=== PATIENT | female | born 1970 | race Caucasian/White ===

== ENCOUNTER 2016-08-05 16:22 | Emergency (ER) | payer OTHER ==
--- NOTE | ~2016-08-05 | EKG ---
PATIENT: ROSALINDA CONNORS UNIT #: [id number] Ventricular Rate: 106 BPM Atrial Rate: 106 BPM P-R Interval: 126 ms QRS Duration: 96 ms Q-T Interval: 356 ms QTC Calculation(Bezet): 472 ms P Salem: 64 degrees Calculated R Salem: 19 degrees Calculated T Salem: 32 degrees Diagnosis Line: Sinus tachycardia Diagnosis Line: Nonspecific T wave abnormality Diagnosis Line: Abnormal ECG Diagnosis Line: When compared with ECG of 02-MAY-2014 08:58, Diagnosis Line: No significant change was found Diagnosis Line: Confirmed by MANDO HUYNH MD ([id number]) on Diagnosis Line: 08/06/2016 7:08:56 PM INTERPRETING MD: AMINA SHELDON
--- NOTE | ~2016-08-05 | CR72 ---
[facility] A Service of [facility] & [facility] RADIOLOGY TEXT RESULTS PATIENT: ROSALINDA CONNORS LOCATION: [facility] : 72 UNIT #: [id number] AGE: [address]: Tyree Borrego MD SEX: F ORDER DR: [id number] [facility] [address] [place], [place] [address] [id number] E MR#: [id number] Acc #: [id number] NAME: ROSALINDA CONNORS : 1970 SEX: F STUDY DATE/TIME: 08/05/2016 17:03 UNIT: [facility] ROOM: STUDY DESCRIPTION: CR Chest Single View Portable Attending Physician: Tyree Borrego Ordering Physician: Ed Doctor [id number] [facility] Primary Care Physician: Linda Mclean M.D. MEDICAL IMAGING REPORT This report is preliminary unless electronic signature is present EXAM Portable chest radiograph INDICATION Chest pain which started 2 days ago. Patient also apparently has some shortness of breath. FINDINGS Comparison is made to a prior study from June 22, 2013 and May 27, 2015. The heart size is within normal limits. This patient is noted to have an area of nodularity within the left infrahilar region which is indeterminate. I do not clearly identify it on prior exams. No pneumothorax or pleural effusion is seen with postsurgical changes seen within the right neck. An area at the left infrahilar region could reflect either infiltrate or even underlying lesion and would be better characterized with dedicated CT of the chest. Dictated by... Tamara Banks M.D. THIS IS AN ELECTRONICALLY VERIFIED REPORT Tamara Banks M.D. at 08/06/2016 4:40 PM AFF/maribel TD: 08/06/2016 01:45 JOB #: [id number] MEDICAL IMAGING REPORT Page 1 of 1 COPY
[~2016-08-05 16:22] MED LIST: ABILIFY5 MG PO; ACETAMINOPHEN650 M3 PO; ACTOPLUS MET PO; ACULAR10 ML OS; ADVAIR 1001 DISK W/D PO; ALBUTEROL1.25 MG/3 IH; ALBUTEROL17 G1 NEB; ALBUTEROL17 GM INH; ALBUTEROL2.5 MG/0.5 IH; ALBUTEROL2.5 MG/0.5 INH; AMARYL PO; AMARYL2 MG PO; ANTIVERT PO; ASPIRIN81 M1 PO; ASPIRIN81 MG PO; ATACAND PO; BAYER CHEWABLE81 MG PO; BUPAP PO; BUPROPION XL150 MG PO; BYETTA5 MCG/0.02 SQ; CANDESARTAN CILE8 MG PO; CHANTIX1 DOSE-PAC PO; CLARITIN10 MG PO; CLINDAMYCI75 MG/5 ML PO; COMPAZINE10 M2 PO; CYMBALTA30 MG PO; DALIRESP500 MCG PO; DEPACON100 MG/ML IV; DESYREL50 MG PO; DIPHENHYDRAMINE50 M1 PO; DRONABINOL2.5 MG PO; DULERA 100 MCG/13 GM; ECOTRIN325 MG PO; EFFIENT10 MG PO; FISH OIL 1,0001 CAP PO; FLEXERIL10 MG PO; GLUMETZA1000 MG/BO PO; HUMALOG100 U/ML SUBQ; INDOCIN SR75 MG PO; INSULIN PUMP R1 EACH; JANUMET 50-1,1 UDTAB PO; KLONOPIN0.5 MG PO; LAMICTAL25 MG PO; LANTUS100 U/ML SUBQ; LEVAQUIN PO; LEXAPRO20 MG PO; LISINOPRIL PO; LISINOPRIL10 MG PO; LISINOPRIL20 MG PO; LOPID600 MG PO; LOPRESSOR PO; LORTAB 10-5001 EACH PO; LORTAB 5/500 TA1 TA2 PO; LORTAB 7.51 TAB 7.5/ PO; LYRICA PO; MAGNESIUM IV; MEDROL4 MG/DOSE- PO; METFORMIN PO; METOPROLOL SUC200 MG PO; NAPROSYN500 MG PO; NICOTINE TRANSD21 MG EXT; NORFLEX100 M1 PO; OMNARIS; OMNARIS12.5 GM NS; ORAPRED ODT10 MG PO; OXYCODONE HCL5 MG PO; PHARBEDRYL50 MG PO; PHENERGAN25 M1 PO; PHENERGAN25 MG PO; PRINIVIL20 M1 PO; ROBITUSSIN100 MG/51 PO; SIMVASTATIN40 MG PO; SOLU-MEDRO1000 MG/1 IV; SPIRIVA18 MCG INH; SYMBICORT INH; TESSALON200 MG PO; THORAZINE25 MG PO; TOPAMAX PO; TOPIRAGEN100 MG PO; TORADOL10 MG PO; TRICOR PO; TUSSIONEX PENN473 ML PO; VENTOLIN INH; VICODIN 5/1 TAB 5/50 PO; VOLTAREN75 MG PO; WELLBUTRIN PO; XOPENEX HFA15 GM INH; ZOMIG5 MG/SPRAY; [UNRECOGNIZED DRUG - OTHER] PO
[2016-08-05 17:28] LABS: BASOPHIL% 0.6 % (0-2.5); EOSINOPHIL# 0.1 X10e3 (0-0.7); EOSINOPHIL% 1.4 % (0.0-7.0); HEMATOCRIT 45.6 % (35.0-45.0); HEMOGLOBIN 14.9 gm/dL (12.0-16.0); LYMPHOCYTE# 1.7 X10e3 (1.0-3.5); LYMPHOCYTE% 25.4 % (17.0-45.0); MEAN CELL VOLUME 88.7 FL (83-96); MEAN CORPUSCULAR HEMOGLOBIN 28.9 PG (28-34); MEAN CORPUSCULAR HGB CONC 32.6 g/dL (30-36); MEAN PLATELET VOLUME 9.3 FL (6.5-11.5); MONOCYTE# 0.6 X10e3 (0-1.0); MONOCYTE% 8.5 % (3.0-12.0); NEUTROPHIL# 4.2 X10e3 (1.5-7.1); NEUTROPHIL% 64.1 % (40-75); PLATELET COUNT 184 X10e3 (140-420); RED BLOOD COUNT 5.14 X10e (3.90-5.30); RED CELL DISTRIBUTION WIDTH 13.8 % (11.0-15.5); WHITE BLOOD COUNT 6.5 X10e3 (4.0-10.5)
[2016-08-05 17:30] LABS: DIFF IND NO
[2016-08-05 17:34] LABS: POC - CKMB 1.2 ng/mL (0.0-7.9); POC - TROPONIN <0.05 ng/mL (<=0.05)
[2016-08-05 17:40] LABS: PARTIAL THROMBOPLASTIN TIME 26.3 SECONDS (23.5-31.3); PROTHROMBIN TIME (PATIENT) 10.4 SECONDS (9.6-11.5)
[2016-08-05 17:49] LABS: ALBUMIN SERUM 3.9 g/dL (3.5-5.0); BILIRUBIN, DIRECT 0.1 mg/dL (0.0-0.2); BILIRUBIN,INDIRECT 0.5 mg/dL (0.0-0.9); BILIRUBIN,TOTAL 0.6 mg/dL (0.2-2.0); BUN/CREATININE RATIO 12.5; CALCIUM SERUM 9.1 mg/dL (8.4-10.2); CREATININE SERUM 0.8 mg/dL (0.6-1.4); GLOM FILT RATE Estimated 89.7 mL/min (>60); POTASSIUM 3.3 mmol/L (3.5-5.1); PROTEIN TOTAL SERUM 7.6 g/dL (6.0-8.3)
[2016-08-05 19:26] LABS: POC - TROPONIN <0.05 ng/mL (<=0.05)
== END 2016-08-05 20:55 | disposition home or self-care (01) ==
LOC: CED 16:22
PROVIDERS: Emergency Medicine
DX: S29.011A Strain of muscle and tendon of front wall of thorax, initial encounter (principal); I25.2 Old myocardial infarction; E11.9 Type 2 diabetes mellitus without complications; I10 Essential (primary) hypertension; J44.9 Chronic obstructive pulmonary disease, unspecified; F41.9 Anxiety disorder, unspecified; Z87.891 Personal history of nicotine dependence; X58.XXXA Exposure to other specified factors, initial encounter; Z88.8 Allergy status to other drugs, medicaments and biological substances; Z79.82 Long term (current) use of aspirin; Z79.899 Other long term (current) drug therapy
CPT/HCPCS: 36415; 71010; 80048; 80076; 82553; 84484; 85025; 85610; 85730; 93005; 96374; 96375; 99284; J1885; J2270; J2405

== ENCOUNTER → 2016-09-14 | Outpatient (CLI) | payer OTHER ==
--- NOTE | ~2016-09-14 | CT57 ---
[facility] A Service of [facility] & [facility] RADIOLOGY TEXT RESULTS PATIENT: ROSALINDA CONNORS [facility] : 72 UNIT #: [id number] AGE: [address]: Radha Spears APRN SEX: F ORDER DR: [id number] [facility] [address] [place], [place] [address] [id number] O MR#: [id number] Acc #: [id number] NAME: ROSALINDA CONNORS : 1970 SEX: F STUDY DATE/TIME: 09/14/2016 11:10 [facility] ROOM: STUDY DESCRIPTION: CT Chest Wo Cont Attending Physician: Radha Spears A.P.R.N. Referring Physician: Radha Spears A.P.R.N. Ordering Physician: Radha Spears A.P.R.N. Primary Care Physician: Linda Mclean M.D. MEDICAL IMAGING REPORT This report is preliminary unless electronic signature is present EXAM CT chest INDICATION Abnormal chest radiograph. Pulmonary nodule. Abnormal chest radiograph. TECHNIQUE CT of the thorax without contrast. Coronal and sagittal reconstructions were obtained. This CT exam was performed with one or more of the following radiation dose reduction techniques: automatic exposure control, adjustment of mA and/or kV according to patient size, and iterative reconstruction. COMPARISON CT chest dated 09/30/2010. FINDINGS There is moderate interstitial edema within both lungs. There are small bilateral pleural effusions, right greater than left. There is some areas of presumed atelectasis in the right lower lobe and the left lower lobe. Mild ground-glass opacities are noted in both lungs which is likely some alveolar edema. There is a cluster small nodules in the left upper lobe measuring up to 0.4 cm. No pathologically enlarged mediastinal or hilar lymph nodes. There is an increased number of morphologically normal lymph nodes in the mediastinum. There is trace pericardial effusion measuring up to 0.7 cm. The heart is enlarged. The thoracic aorta is normal in caliber. PELVIS: Limited images of the upper abdomen were obtained. There is no acute findings. Gallbladder is surgically absent. 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 IMPRESSION 1. Development of moderate interstitial edema and small bilateral pleural effusions. This is indicative of congestive heart failure. 2. Cardiomegaly and trace pericardial effusion is also supportive for acute congestive heart failure. 3. There are a few small pulmonary nodules in the lungs measuring less than 4 mm. These are considered to be benign given their small size. If there is significant pulmonary risk-factors, consider a precautionary 12-month followup study to further evaluate. 4. There is no focal area of nodularity in the left lower lobe to correlate with the patient's abnormal chest radiograph from 08/05/2016. Dictated by... Dayron Redding M.D. THIS IS AN ELECTRONICALLY VERIFIED REPORT Dayron Redding M.D. at 09/15/2016 9:14 AM DANNI/maribel TD: 09/15/2016 03:16 JOB #: [id number] MEDICAL IMAGING REPORT Page 1 of 1 COPY
--- NOTE | ~2016-09-14 | NM69 ---
[facility] A Service of [facility] RADIOLOGY TEXT RESULTS PATIENT: ROSALINDA CONNORS LOCATION: [facility] : 72 UNIT #: [id number] AGE: [address]: Radha Spears APRN SEX: F ORDER DR: [id number] [id number] [place], [place] [address] [id number] O MR#: [id number] Acc #: [id number] NAME: ROSALINDA CONNORS : 1970 SEX: F STUDY DATE/TIME: 09/14/2016 11:56 UNIT: [facility] ROOM: STUDY DESCRIPTION: JB Pulm Vent and Perf Attending Physician: Radha Spears A.P.R.N. Referring Physician: Radha Spears A.P.R.N. Ordering Physician: Radha Spears A.P.R.N. Primary Care Physician: Linda Mclean M.D. MEDICAL IMAGING REPORT This report is preliminary unless electronic signature is present EXAM Ventilation perfusion lung scan 09/14/2016 HISTORY Three week history of chest pain and shortness of air worsened with exertion. PROCEDURE Study performed with 30.4 mCi technetium 99m DTPA aerosol by inhalation followed by 5.78 mCi technetium 99m MAA IV. COMPARISON Chest radiograph same date. FINDINGS Ventilation images are normal. Perfusion images are normal. IMPRESSION Normal ventilation perfusion lung scan. Dictated by... Saeid Hansen M.D. THIS IS AN ELECTRONICALLY VERIFIED REPORT Saeid Hansen M.D. at 09/16/2016 10:29 AM TEV/to TD: 09/14/2016 16:44 JOB #: [id number] [facility] A Service [facility] RADIOLOGY TEXT RESULTS PATIENT: ROSLAINDA CONNORS LOCATION: [facility] : 72 UNIT #: [id number] AGE: [address]: Radha Spears APRN SEX: F ORDER DR: MEDICAL IMAGING REPORT Page 1 of 1 COPY
--- NOTE | ~2016-09-14 | CR63 ---
[facility] A Service of [facility] & [facility] RADIOLOGY TEXT RESULTS PATIENT: ROSALINDA CONNORS [facility] : 72 UNIT #: [id number] AGE: [address]: Radha Spears APRN SEX: F ORDER DR: [id number] [facility] [address] [place], [place] [address] [id number] O MR#: [id number] Acc #: [id number] NAME: ROSALINDA CONNORS : 1970 SEX: F STUDY DATE/TIME: 09/14/2016 11:23 UNIT: [facility] ROOM: STUDY DESCRIPTION: CR Chest 2 View Attending Physician: Radha Spears A.P.R.N. Referring Physician: Radha Spears A.P.R.N. Ordering Physician: Radha Spears A.P.R.N. Primary Care Physician: Linda Mclean M.D. MEDICAL IMAGING REPORT This report is preliminary unless electronic signature is present EXAM Chest PA and lateral, 09/14/2016 HISTORY Dyspnea, shortness of breath, chest pain and cough for 1 week, asthma. Smoking history. FINDINGS There is mild cardiac enlargement. There are interstitial infiltrates bilaterally which could reflect mild pulmonary edema. No airspace consolidation is seen. There are no pleural effusions. IMPRESSION Cardiomegaly with interstitial infiltrates bilaterally could reflect mild pulmonary edema. Dictated by... Jorge Breaux M.D. THIS IS AN ELECTRONICALLY VERIFIED REPORT Jorge Breaux M.D. at 09/15/2016 2:11 PM JUANITO/maribel TD: 09/14/2016 23:46 JOB #: [id number] MEDICAL IMAGING REPORT Page 1 of 1 COPY
== END | disposition home or self-care (01) ==
LOC: CCAT 10:40
DX: R06.00 Dyspnea, unspecified (principal); R93.8 Abnormal findings on diagnostic imaging of other specified body structures; I51.7 Cardiomegaly; R91.8 Other nonspecific abnormal finding of lung field; J90 Pleural effusion, not elsewhere classified; J81.1 Chronic pulmonary edema
CPT/HCPCS: 71020; 71250; 78582; A9540; A9567